=== PATIENT | male | born 1995 | race Caucasian/White ===

== ENCOUNTER 2019-05-17 09:13 | Emergency (ER) | payer OTHER ==
[2019-05-17 09:21] VITALS: BP 138/84; PULSE 81; TEMP 97.9; BMI 29.1
--- NOTE | 2019-05-17 10:45 | PDOC ---
History of Present Illness - General History Source: Patient Exam Limitations: No Limitations - History of Present Illness Initial Comments: 05/17/19 10:32 Patient is a 24-year-old male with no past medical history who presents to the ED with complaint of palpitations and chest pain that has been intermittent since April 06, 2019. The patient states he initially feels like his heart is racing and sometimes he will have pain in his left chest. He denies any shortness of breath. He does admit to having symptoms like carpopedal spasms intermittently. The patient denies any cardiac history. He does admit to flying to [place] in December 2018 and flying back in March 2019. The patient is not a smoker. He states his symptoms were similar after smoking marijuana 1 time several months ago but he has not smoked marijuana since. He denies any fevers or chills. He denies taking anything for his symptoms. <Amanda Jo - Last Filed: 05/17/19 13:30> <Guilherme Gambino - Last Filed: 05/21/19 10:24> - General Chief Complaint: Chest Pain Stated Complaint: CHEST PAIN Time Seen by Provider: 05/17/19 09:51 Past History - Past Medical History COPD: No - Psycho Social/Smoking Cessation Hx Smoking History: Current some day smoker Have you smoked in the past 12 months: Yes Number of Cigarettes Smoked Daily: 1 Information on smoking cessation initiated: Yes Hx Alcohol Use: Yes Drug/Substance Use Hx: Yes <Amanda Jo - Last Filed: 05/17/19 13:30> <Guilherme Gambino - Last Filed: 05/21/19 10:24> - Past Medical History Allergies/Adverse Reactions: Allergies Allergy/AdvReac Type Severity Reaction Status Date / Time No Known Allergies Allergy Verified 05/17/19 09:15 Review of Systems - Review of Systems Comments:: 05/17/19 10:44 - Review of Systems Able to Perform ROS?: Yes Constitutional: No: Fever, Chills, Loss of Appetite, Night Sweats, Weakness HEENTM: No: Eye Pain, Vision changes, Ear Pain, Throat Pain, Throat Swelling, Mouth Pain, Difficulty Swallowing Respiratory: No: Cough, Shortness of Breath, Wheezing, Sputum Production Cardiac (ROS): No: Chest Tightness, Irregular Heart Beat, Edema; Positive palpitations and chest pain ABD/GI: No: Nausea, Vomiting, Abdominal Pain, Diarrhea : No Dysuria, No Hematuria, No Frequency, No Urgency Musculoskeletal: No: Muscle Pain, Back Pain, Joint Pain, Muscle Weakness, Neck Pain Integumentary: No: Lesions, Rash Neurological: No: Headache, Numbness, Tingling, Weakness, Speech Difficulties <Amanda Jo D - Last Filed: 05/17/19 13:30> *Physical Exam - Vital Signs Last Vital Signs Temp Pulse Resp BP Pulse Ox 97.9 F 81 18 138/84 100 05/17/19 09:16 05/17/19 09:16 05/17/19 09:16 05/17/19 09:16 05/17/19 09:16 - Physical Exam 05/17/19 10:45 - Physical Exam General Appearance: Nourished, Appropriately Dressed, No Distress HEENT: EOMI, Normal Voice, No Muffled/Hoarse voice, No Nasal Congestion, No Rhinorrhea, Hearing Grossly Normal Neck: Supple, No Lymphadenopathy (R), No Lymphadenopathy (L), No Rigidity, No Decreased range of motion Respiratory/Chest: Lungs Clear, Normal Breath Sounds. No Respiratory Distress, No Accessory Muscle Use Cardiovascular: Regular Rhythm, Regular Rate, S1, S2 Gastrointestinal/Abdominal: Normal Bowel Sounds, Soft. Non-tender, No Guarding , No Rebound, No Rigidity Musculoskeletal: Normal Inspection. No Decreased Range of Motion Extremity: Normal Capillary Refill, Normal Inspection Integumentary: Normal Color, Dry. No Rash Neurologic: occupational analyst II-XII NML intact, Fully Oriented, Alert, Normal Mood/Affect, Normal Response <Amanda Jo D - Last Filed: 05/17/19 13:30> - Vital Signs Last Vital Signs Temp Pulse Resp BP Pulse Ox 97.9 F 81 18 138/84 100 05/17/19 09:16 05/17/19 09:16 05/17/19 09:16 05/17/19 09:16 05/17/19 09:16 <Guilherme Gambion - Last Filed: 05/21/19 10:24> Heart Score/ECG Review - History History: Slightly suspicious - Electrocardiogram EKG: Normal - Age Age: </= 45 - Risk Factors Based on the list above the patient has:: No risk factors known - Troponin Troponin: </= normal limit - Score Heart Score - Total: 0 <Amanda Jo - Last Filed: 05/17/19 13:30> ED Treatment Course - LABORATORY CBC & Chemistry Diagram: 05/17/19 10:20 05/17/19 10:20 - RADIOLOGY Radiology Studies Ordered: Category Date Time Status CHEST CTA [CT] Stat CT Scan 05/17/19 10:24 Ordered CHEST PA & LAT [RAD] Stat Radiology 05/17/19 10:22 Ordered <Amanda Jo - Last Filed: 05/17/19 13:30> - LABORATORY CBC & Chemistry Diagram: 05/17/19 10:20 05/17/19 10:20 - ADDITIONAL ORDERS Additional order review: 05/17/19 10:20 RBC 5.73 H MCV 85.0 MCHC 34.0 RDW 13.5 MPV 8.0 Neutrophils % 71.9 Lymphocytes % 16.2 Monocytes % 7.4 Eosinophils % 4.0 Basophils % 0.5 <Guilherme Gambino - Last Filed: 05/21/19 10:24> Medical Decision Making - Medical Decision Making 05/17/19 10:46 Assessment: Patient is a 24-year-old male with palpitations and intermittent chest pain since March 2019. Plan: -EKG done in triage -Labs including cardiac work-up -Chest x-ray -CTA chest to rule out PE -Will reassess 05/17/19 13:[address] Parks and he has been made aware of findings. He states he wants the patient to see him in his office at 12 noon tomorrow and he will treat him for anxiety. He will also set him up for stress test. I have discussed all this with the patient and he will follow-up with Dr. Parks tomorrow at 12 noon. He understands and agrees with this treatment plan and the <Amanda Jo - Last Filed: 05/17/19 13:30> - Medical Decision Making The patient was seen and evaluated in conjunction with ZAC Jo under my direct supervision, ancillary studies were reviewed. I independently interviewed and evaluated the patient and I agree with the plan as outlined by ZAC Jo. <Guilherme Gambino - Last Filed: 05/21/19 10:24> Discharge - Discharge Information Problems reviewed: Yes <Amanda Jo - Last Filed: 05/17/19 13:30> <ImmanuelGuilherme - Last Filed: 05/21/19 10:24> - Discharge Information Clinical Impression/Diagnosis: Atypical chest pain Condition: Stable Disposition: HOME - Follow up/Referral Referrals: Long Parks MD [Primary Care Provider] - (Follow up with Dr. Parks at 12pm tomorrow 05/18/19) - Patient Discharge Instructions Patient Printed Discharge Instructions: DI for Atypical Chest Pain Additional Instructions: You have an appointment scheduled with Dr. Parks tomorrow at 12 noon. Get plenty of rest and drink plenty of fluids. - Post Discharge Activity
[2019-05-17 10:49] LABS: BASO % 0.5 % (0-2.0); HEMATOCRIT 48.7 % (35.4-49); HEMOGLOBIN 16.6 GM/dL (11.7-16.9); LYMPH % 16.2 % (8-40); MCH 28.9 pg (25.7-33.7); MONO % 7.4 % (3.8-10.2); NEUT % 71.9 % (42.8-82.8); PLATELET COUNT 228 K/MM3 (134-434); RBC 5.73 M/mm3 (4.00-5.60); RDW 13.5 % (11.9-15.9); WHITE BLOOD COUNT 5.5 K/mm3 (4.0-10.0)
[2019-05-17 10:58] LABS: INR 1.16 (0.83-1.09); PROTHROMBIN TIME (PATIENT) 13.7 SEC (9.7-13.0)
[2019-05-17 11:01] LABS: ACTIVATED PTT 38.4 SECONDS (25.2-36.5)
[2019-05-17 11:29] LABS: ALBUMIN 4.6 g/dl (3.4-5.0); ANION GAP 5 MMOL/L (8-16); BLOOD UREA NITROGEN 13.3 mg/dL (7-18); CALCIUM 9.7 mg/dL (8.5-10.1); CHLORIDE 109 mmol/L (98-107); CO2 27 mmol/L (21-32); GLUCOSE,RANDOM 93 mg/dL (74-106); POTASSIUM 4.3 mmol/L (3.5-5.1); SODIUM 141 mmol/L (136-145); TOT PROT 8.2 g/dl (6.4-8.2)
[2019-05-17 11:35] LABS: ALK PHOS 82 U/L (45-117); BILIRUBIN,TOTAL 0.7 mg/dL (0.2-1); CREATININE 1.1 mg/dL (0.55-1.3); MAGNESIUM 2.3 mg/dL (1.8-2.4); SGOT/AST 16 U/L (15-37); SGPT/ALT 32 U/L (13-61)
--- NOTE | 2019-05-17 16:24 | EKG ---
Test Reason : Blood Pressure : / mmHG Vent. Rate : 052 BPM Atrial Rate : 052 BPM P-R Int : 136 ms QRS Dur : 084 ms QT Int : 414 ms P-R-T Axes : 048 017 008 degrees QTc Int : 385 ms SINUS BRADYCARDIA OTHERWISE NORMAL ECG WHEN COMPARED WITH ECG OF 13-MAY-2019 12:01, NO SIGNIFICANT CHANGE WAS FOUND Confirmed by MD SILVER MOYSES ([id number]) on 05/17/2019 4:24:09 PM Referred By: Confirmed By:MAKSIM SILVER MD
== END 2019-05-17 13:46 | disposition home or self-care (01) ==
LOC: JER 09:13
DX: R07.9 Chest pain, unspecified (principal); Z72.0 Tobacco use
CPT/HCPCS: 36415; 71046-TC-FY; 71275-TC; 80053; 82550; 83735; 84439; 84443; 84481; 84484; 85025; 85610; 85730; 93005; 93010; 99285-25; Q9967

== ENCOUNTER 2020-03-09 14:28 | Emergency (ER) | payer OTHER ==
[2020-03-09 14:37] VITALS: BMI 31.8
[2020-03-09] MEDS ORDERED: ONDANSETRON *ODT* 4 MG TABLET SL ONE (14:57)
[2020-03-09] MEDS ORDERED: methylPREDNISolone NA SUCC 125 MG/2 ML VIAL IM ONE (14:57)
[2020-03-09] MEDS ORDERED: ONDANSETRON *ODT* 4 MG TABLET ONE (14:57)
[2020-03-09] MEDS ORDERED: methylPREDNISolone NA SUCC 125 MG/2 ML VIAL ONE (14:58)
[2020-03-09 16:34] VITALS: BP 118/72; PULSE 86; TEMP 98.1
== END 2020-03-09 16:34 | disposition home or self-care (01) ==
LOC: SUPCPDRO 14:28 → JER 14:28
PROC: 3E02329 Introduction of Other Anti-infective into Muscle, Percutaneous Approach (ICD-10-PCS; principal; 2020-03-09)
PROC: 3E023GC Introduction of Other Therapeutic Substance into Muscle, Percutaneous Approach (ICD-10-PCS; 2020-03-09)
DX: R05 Cough (principal); J06.9 Acute upper respiratory infection, unspecified
CPT/HCPCS: 71046-TC-FY; 99284-25; Q0162